=== PATIENT | female | born 1970 | race Caucasian/White ===

== ENCOUNTER 2017-01-10 12:40 | Emergency (ER) | payer BC ==
[~2017-01-10] VITALS: Ht 172.7 cm; Wt 68.2 kg
[2017-01-10 12:40] VITALS: TEMP 98.6; Ht 172.7 cm; Wt 68.2 kg
[~2017-01-10 12:40] MED LIST: OXYC1TAB8 PO; VENL-68 PO
--- OUTSIDE RECORDS SUMMARY | 2017-01-10 12:44 | XMS REPORT | Referral Summary ---
Author Author [facility] Organization [facility] Address Unknown Phone Unavailable Care Team Providers Care Biomaterials Engineer Name Role Phone No PCP, [facility] Primary Care Physician [phone] Encounter [facility] Date(s): 06/23/16 - 06/23/16 [facility] [address] [place], [place] [address] Discharge Disposition: 01-Home or Self Care Attending Physician: Davi Aguilera MD Admitting Physician: Davi Aguilera MD Vital Signs No data available for this section Problem List Condition Effective Dates Status Health Status Informant Cancer of the right Active eye.(Confirmed) Migraine(Confirmed) Active Allergies, Adverse Reactions, Alerts Substance Reaction Severity Status acetaminophen ADDICTION Active HYDROcodone ADDICTION Active Medications busPIRone 10 mg oral tablet 10 mg 1 tabs, Oral, TID, # 90 tabs, 0 Refill(s), Pharmacy: [facility], 1 tabs Oral TID Start Date: 03/16/16 Status: Ordered Effexor XR 75 mg oral capsule, extended release 75 mg 1 caps, Oral, Daily, # 90 caps, 0 Refill(s), Pharmacy: [facility], 1 caps Oral Daily Start Date: 04/06/16 Status: Ordered Imitrex 25 mg oral tablet 25 mg 1 tabs, Oral, Daily, as needed for migraine headache, may repeat dose after 2 hours up to a maximum of 200 mg in 24 hours, # 9 tabs, 0 Refill(s), Pharmacy: [facility], 1 tabs Oral Daily,PRN:as needed for migraine headache,Instr:may r... Start Date: 01/14/16 Status: Ordered Percocet 5/325 oral tablet 1-2 tabs, Oral, q6hr, as needed for pain, # 60 tabs, 0 Refill(s) Start Date: 06/08/16 Stop Date: 07/03/16 Status: Ordered Percocet 5/325 oral tablet 1 to 2tabs, Oral, q6hr, as needed for pain, # 60 tabs, 0 Refill(s) Start Date: 06/23/16 Stop Date: 07/07/16 Status: Ordered Tylenol Extra Strength 500 mg, Oral, q6hr, 0 Refill(s) Start Date: 05/25/16 Status: Ordered Results No data available for this section Immunizations Vaccine Date Refusal Reason influenza virus vaccine, inactivated1 06/11/15 1Location History: [facility] Procedures Procedure Date Related Diagnosis Body Site Mutiple eye surgeries Rt Arthroscopy of knee Social History Social History Type Response Smoking Status Current every day smoker; Type: Cigarettes Assessment and Plan No data available for this section
--- OUTSIDE RECORDS SUMMARY | 2017-01-10 12:44 | XMS REPORT | Referral Summary ---
Author Author [facility] Organization [facility] Address Unknown Phone Unavailable Care Team Providers Care Core Rescuer Name Role Phone No PCP, [facility] Primary Care Physician [phone] Encounter [facility] [id number] Date(s): 07/09/16 - 07/09/16 [facility], [facility] [address] [place] [address] Discharge Diagnosis: Chronic lower back pain Discharge Diagnosis: Pelvic region somatic dysfunction Discharge Diagnosis: Thoracic region somatic dysfunction Discharge Diagnosis: Lumbar region somatic dysfunction Discharge Disposition: 01-Home or Self Care Attending Physician: Marek Townsend DO Admitting Physician: Marek Townsend DO Vital Signs Most recent to 1 oldest [Reference Range]: Peripheral Pulse 79 bpm Rate [60-100 bpm] (07/09/16 4:16 PM) Respiratory Rate 18 br/min [14-20 br/min] (07/09/16 4:16 PM) Blood Pressure 110/80 mmHg [90-140/60-90 mmHg] (07/09/16 4:16 PM) SpO2 98 % (07/09/16 4:16 PM) Problem List Condition Effective Dates Status Health Status Informant Cancer of the right Active eye.(Confirmed) Clavicle Active fracture(Confirmed) Migraine(Confirmed) Active Allergies, Adverse Reactions, Alerts Substance Reaction Severity Status acetaminophen ADDICTION Active HYDROcodone ADDICTION Active Medications busPIRone 10 mg oral tablet 10 mg 1 tabs, Oral, TID, # 90 tabs, 0 Refill(s), Pharmacy: [id number], 1 tabs Oral TID Start Date: 03/16/16 Status: Ordered Effexor XR 75 mg oral capsule, extended release 75 mg 1 caps, Oral, Daily, # 90 caps, 0 Refill(s), Pharmacy: [facility], 1 caps Oral Daily Start Date: 04/06/16 Status: Ordered Imitrex 25 mg oral tablet 25 mg 1 tabs, Oral, Daily, as needed for migraine headache, may repeat dose after 2 hours up to a maximum of 200 mg in 24 hours, # 9 tabs, 0 Refill(s), Pharmacy: [facility], 1 tabs Oral Daily,PRN:as needed for migraine headache,Instr:may r... Start Date: 01/14/16 Status: Ordered Tylenol Extra Strength 500 mg, [...] day smoker; Type: Cigarettes Assessment and Plan Extracted from: Title: OV - Lower Back Pain Author: Marek Townsend DO Date: 07/09/16 Assessment/Plan 1.Chronic lower back pain Offered OMT to patientfor chronic lower back pain. Patient has no contraindication for OMT. Patientverbally consented for OMT. OMT performed very carefully as to not disturb healing of her L clavicle. Pt was not in any position or received any treatment that caused pain to her L clavicle. Patient tolerated the procedure well with significant improvement of pain per patient. Recommend drinking plenty of water and may use Tylenol, ibuprofen,and heating padas needed for pain. Returnas needed. Discussed aboutworrisome signs such asloss of bowel or bladder control in saddle numbness. Patient to return to care soonerif these occur. OMT performed: Thoracic- Myofascial release Lumbar - Myofascial release Pelvis - Articulatory technique, muscle energy 2.Thoracic region somatic dysfunction OMT performedwith improvement as stated above 3.Lumbar region somatic dysfunction OMT performedwith improvement as stated above 4.Pelvic region somatic dysfunction OMT performedwith improvement as stated above
--- OUTSIDE RECORDS SUMMARY | 2017-01-10 12:44 | XMS REPORT | Referral Summary ---
Author Author [facility] Organization [facility] Address Unknown Phone Unavailable Care Team Providers Care Bonding Supervisor Name Role Phone No PCP, [facility] Primary Care Physician [phone] Encounter [facility] Date(s): 09/15/16 - 09/15/16 [facility], [address] [place] [id number] Discharge Disposition: 01-Home or Self Care Attending Physician: Giselle Cortes APRN Admitting Physician: Giselle Cortes APRN Vital Signs Most recent to 1 oldest [Reference Range]: Temperature Tympanic 36.7 degC [36.6-38.1 degC] (09/15/16 9:55 AM) Peripheral Pulse 88 bpm Rate [60-100 bpm] (09/15/16 9:55 AM) Respiratory Rate 17 br/min [14-20 br/min] (09/15/16 9:55 AM) Blood Pressure 110/70 mmHg [90-140/60-90 mmHg] (09/15/16 9:55 AM) SpO2 98 % (09/15/16 9:55 AM) Problem List Condition Effective Dates Status Health Status Informant Cancer of the right Active eye.(Confirmed) Clavicle Active fracture(Confirmed) Migraine(Confirmed) Active Allergies, Adverse Reactions, Alerts Substance Reaction Severity Status acetaminophen ADDICTION Active HYDROcodone ADDICTION Active Medications Augmentin 875 mg-125 mg oral tablet 1 tabs, Oral, q12hr, X 10 days, # 20 tabs, 0 Refill(s), Pharmacy: [facility] Start Date: 09/15/16 Stop Date: 09/25/16 Status: Ordered busPIRone 10 mg oral tablet 10 mg 1 tabs, Oral, TID, # 90 tabs, 0 Refill(s), Pharmacy: [facility], 1 tabs Oral TID Start Date: 03/16/16 Status: Ordered Codeine Phosphate-Promethazine HCl 10 mg-6.25 mg/5 mL oral syrup 5 mL, Oral, q4hr, as needed for cough, not to exceed 30 mL/24 hours, # 240 mL, 0 Refill(s) Start Date: 09/15/16 Status: Ordered Effexor XR 75 mg oral capsule, extended release 75 mg 1 caps, Oral, Daily, # 90 caps, 0 Refill(s), Pharmacy: [facility], 1 caps Oral Daily Start Date: 08/10/16 Status: Ordered Imitrex 25 mg oral tablet 25 mg 1 tabs, Oral, Daily, as needed for migraine headache, may repeat dose after 2 hours up to a maximum of 200 mg in 24 hours, # 9 tabs, 0 Refill(s), Pharmacy: [facility], 1 tabs Oral Daily,PRN:as needed for migraine headache,Instr:january r... Start Date: 01/14/16 Status: Ordered Lyrica 75 mg oral capsule 75 mg 1 caps, Oral, BID, # 60 caps, 2 Refill(s) Start Date: 08/06/16 Status: Ordered Tylenol Extra Strength 500 mg, Oral, q6hr, 0 Refill(s) Start Date: 05/25/16 Status: Ordered Results Hematology Most recent to 1 oldest [Reference Range]: WBC [5.0-10.0 10.0 10*3/uL 10*3/uL] (09/15/16 10:58 AM) RBC [3.70-5.20] 4.53 (09/15/16 10:58 AM) Hgb [12.0-16.0 14.1 gm/dL gm/dL] (09/15/16 10:58 AM) Hct [37.0-47.0 %] 42.1 % (09/15/16 10:58 AM) MCV [80.0-96.0 fL] 92.9 fL (09/15/16 10:58 AM) MCH [26.0-34.0 pg] 31.1 pg (09/15/16 10:58 AM) MCHC [32.0-36.0 33.5 gm/dL gm/dL] (09/15/16 10:58 AM) RDW [0.0-14.5 %] 12.0 % (09/15/16 10:58 AM) Platelet [150-400 202 10*3/uL 10*3/uL] (09/15/16 10:58 AM) MPV [8.8-14.8 fL] 11.8 fL (09/15/16 10:58 AM) Neutrophils [50-70 74 % %] *HI* (09/15/16 10:58 AM) Lymphocytes [20-40 17 % %] *LOW* (09/15/16 10:58 AM) Monocytes [4-8 %] 8 % (09/15/16 10:58 AM) Eosinophils [0-6 %] 2 % (09/15/16 10:58 AM) Basophils [0-2 %] 0 % (09/15/16 10:58 AM) Neutro Absolute 7.39 [2.50-7.00] *HI* (09/15/16 10:58 AM) Lymph Absolute 1.69 [1.00-4.00] (09/15/16 10:58 AM) [place] Absolute 0.75 [0.20-0.80] (09/15/16 10:58 AM) Eos Absolute 0.20 [0.00-0.60] (09/15/16 10:58 AM) Baso Absolute 0.02 [0.00-0.30] (09/15/16 10:58 AM) Immunizations Given and Recorded Vaccine Date Status Refusal Reason influenza virus vaccine, inactivated1 06/11/15 Recorded 1Location History: [facility] Procedures Procedure Date Related Diagnosis Body Site Collection of venous blood by venipuncture 09/15/16 Mutiple eye surgeries Rt Arthroscopy of knee Social History Social History Type Response Smoking Status Current every day smoker; Type: Cigarettes Assessment and Plan No data available for this section
--- OUTSIDE RECORDS SUMMARY | 2017-01-10 12:44 | XMS REPORT | Referral Summary ---
Author Author [facility] Organization [facility] Address Unknown Phone Unavailable Care Team Providers Care Property Custodian Name Role Phone No PCP, [facility] Primary Care Physician [phone] Encounter VC Date(s): 06/08/16 - 06/08/16 [facility] [address] [place], [place] [address] Discharge Disposition: 01-Home or Self Care Attending [...] TID, # 90 tabs, 0 Refill(s), Pharmacy: [facility], 1 tabs Oral TID Start [...] hours, # 9 tabs, 0 Refill(s), Pharmacy: [facility], 1 tabs Oral Daily,PRN:as needed for migraine headache,Instr:may r... Start Date: 01/14/16 Status: Ordered oxyCODONE-acetaminophen 5 mg-325 mg oral tablet See Instructions, as needed for pain, 1 -2 tabs Oral q4-6hr, # 60 tabs, 0 Refill (s) Start Date: 05/25/16 Stop Date: 06/12/16 Status: Ordered Percocet 5/325 oral tablet 1-2 tabs, Oral, q6hr, as needed for pain, # 60 tabs, 0 Refill(s) Start Date: 06/08/16 Stop Date: 07/03/16 Status: Ordered Tylenol Extra Strength 500 mg, [...] Cigarettes Assessment and Plan Extracted from: Title: Ambulatory Patient Education Author: Davi Aguilera MD Date: 06/08/16 Physical Medicine and Rehabilitation Rib Belt Rib belts can be used to help control the pain from a chest injury. The belt gives gentle support to the injured area. It also helps reduce chest motion. RISKS AND COMPLICATIONS Rib belts can increase the risk of getting pneumonia after a chest injury. You must be sure to breathe deeply and cough several times every hour to keep your lungs clear. Do not use a rib belt if it does not help relieve your pain. HOW TO APPLY THE RIB BELT Wear the rib belt only as directed by your health care provider. Take the belt off at night when you go to bed. 1.Place the belt across your back and stretch the ends out and forward across your rib cage. 2.Press the velcro areas together when the belt is putting gentle pressure on your chest wall. Do not make the rib belt too tight. Make sure you can breathe comfortably. SEEK MEDICAL CARE IF: You have a fever. SEEK IMMEDIATE MEDICAL CARE IF: You develop pus-like sputum or an uncontrolled cough. You begin coughing up blood. You have pain that is getting worse or is not controlled with medicines. MAKE SURE YOU: Understand these instructions. Will watch your condition. Will get help right away if you are not doing well or get worse. This information is not intended to replace advice given to you by your health care provider. Make sure you discuss any questions you have with your health care provider. Document Released: 09/30/2005 Document Revised: 09/13/2015 Document Reviewed: [employer] Patient Information 2016 [employer] [facility]. No follow up information was provided. Extracted from: Title: Office Visit Note Author: Davi Aguilera MD Date: 06/08/16 Assessment/Plan Orthopedic aftercare Ordered: Postoperative Est [id number] Extracted from: Title: Clinical Document Author: Kusum Hooker RN Date: 06/08/16 [facility] Dr. Davi Aguilera MD [address] [place] [address] Fx: [phone] To whom it may concern: Sarah Robles is currently under my medical care and was seen in the office on 06/08/16 for left clavicle fracture. Recommend no lifting/non-weightbearing left upper extremity. She will follow up in approximately 2 weeks for re-evaluation. Sincerely, Dr. Davi Aguilera MD
--- OUTSIDE RECORDS SUMMARY | 2017-01-10 12:44 | XMS REPORT | Referral Summary ---
Author Author [facility] Organization [facility] Address Unknown Phone Unavailable Care Team Providers Care Teletype Technician Name Role Phone No PCP, [facility] Primary Care Physician [phone] Encounter VC Date(s): 08/10/16 - 08/10/16 [facility] [address] [place] [address] Discharge Disposition: 01-Home or Self Care [...] TID, # 90 tabs, 0 Refill(s), Pharmacy: [facility], 1 tabs Oral TID Start Date: 03/16/16 Status: Ordered Effexor XR 75 mg oral capsule, extended release 75 mg 1 caps, Oral, Daily, # 90 caps, 0 Refill(s), Pharmacy: [facility], 1 caps Oral Daily Start Date: 08/10/16 Status: Ordered Imitrex 25 mg oral tablet 25 mg 1 tabs, Oral, Daily, as needed for migraine headache, may repeat dose after 2 hours up to a maximum of 200 mg in 24 hours, # 9 tabs, 0 Refill(s), Pharmacy: [facility], 1 tabs Oral Daily,PRN:as needed for migraine headache,Instr:may r... Start Date: 01/14/16 Status: Ordered Lyrica [...] Patient Education Author: Davi Aguilera MD Date: 08/10/16 Physical Medicine and Rehabilitation Rib Belt Rib [...] Released: 09/30/2005 Document Revised: 09/13/2015 Document Reviewed: [employer] Patient Education 2016 [employer] No follow up information was provided. Extracted from: Title: Office Visit Note Author: Davi Aguilera MD Date: 08/10/16 Assessment/Plan Orthopedic aftercare Ordered: Postoperative Est [id number]
--- OUTSIDE RECORDS SUMMARY | 2017-01-10 12:44 | XMS REPORT | Referral Summary ---
Author Author [facility] Organization [facility] Address Unknown Phone Unavailable Care Team Providers Care Hand Developer Name Role Phone No PCP, [facility] Primary Care Physician [phone] Encounter VC Date(s): 05/25/16 - 05/25/16 [facility] [address] [place], [place] [address] Discharge Disposition: 01-Home or Self Care [...] TID, # 90 tabs, 0 Refill(s), Pharmacy: [facility], 1 tabs Oral TID Start Date: 03/16/16 Status: Ordered Effexor XR 75 mg oral capsule, extended release 75 mg 1 caps, Oral, Daily, # 90 caps, 0 Refill(s), Pharmacy: [facility], 1 caps Oral Daily Start Date: 04/06/16 Status: Ordered Imitrex 25 mg oral tablet 25 mg 1 tabs, Oral, Daily, as needed for migraine headache, may repeat dose after 2 hours up to a maximum of 200 mg in 24 hours, # 9 tabs, 0 Refill(s), Pharmacy: [facility], 1 tabs Oral Daily,PRN:as needed for migraine headache,Instr:may r... Start Date: 01/14/16 Status: Ordered oxyCODONE-acetaminophen 5 mg-325 mg oral tablet See Instructions, as needed for pain, 1 -2 tabs Oral q4-6hr, # 60 tabs, 0 Refill (s) Start Date: 05/25/16 Stop Date: 06/12/16 Status: Ordered Tylenol Extra Strength 500 mg, [...] Cigarettes Assessment and Plan Extracted from: Title: Clinical Document Author: Janie Doe Date: 05/25/16 [facility] Dr. Davi Aguilera MD [address] [facility] [address] FX: [phone] To whom it may concern: Sarah Robles is currently under my medical care and was seen in the office on for a left clavicle fracture. May return to work 05/27/16 with the following restrictions. No weight bearing or lifting with the left upper extremity, sling to left upper extremity. Sincerely, Dr. Davi Aguilera MD
--- OUTSIDE RECORDS SUMMARY | 2017-01-10 12:44 | XMS REPORT | Continuity of Care Document ---
Author Author [facility] Organization [facility] Address Unknown Phone Unavailable Support Name Relationship Address Phone MARIETTA MACHUCA MD Caregiver [address] [place] [address] Unavailable ADRIANA CHAIDEZ Next Of Kin [address] [place] [address] Insurance Providers Guarantor Sarah Robles Address [address] [place] [address] C Email DENIED TO PT PORTAL Payer [facility] [email or web address] Policy Number [id number] Subscriber's Name Juan Daniel Roblesyn Earnestine Relationship 18 Self Group Number [id number] Chief Complaint and Reason for Visit Chief Complaint Shoulder Injury Reason for Visit Fracture, clavicle Problems Past Problems Medical Problem Onset Date Fracture, clavicle Unknown Medications Current Home Medications Medication Dose Units Route Directions Days Qty Instructions Start Date Oxycodone Hcl/Acetaminophen (Percocet 5-325 Mg Tablet) 5-325 Tablet 1-2 Tab Oral Every 6 Hr Prn as needed for Pain 20 Tablet Take 1 tablet, by mouth, every 4 hours as needed for pain. 05/16/16 Venlafaxine Hcl (Venlafaxine Hcl Er) 75 Mg Cap.er.24h 75 Mg Oral Daily 05/16/16 Past Home Medications Medication Directions Ordered Status Albuterol (Ventolin) 17 Gm Aerosol, 2 Puff Inhalation As Needed 09/17/10 Discontinued Albuterol Sulfate (Ventolin Hfa) 18 Gm Hfa.aer.ad, 18 Gm Inhalation Discontinued Citalopram Hydrobromide (Celexa) 40 Mg Tablet, 40 Mg Oral Daily 09/17/10 Discontinued Venlafaxine Hcl (Effexor Xr) 150 Mg Cap.sr.24h, 1 Tab Oral Daily 10/29/08 Discontinued Social History Social History Problem Response Recorded Date/Time Onset Date Status Chewing Tobacco Status No 05/16/2016 8:51pm Not Applicable Not Applicable Hx Substance Use Y PRECRIPTION MED 05/16/2016 8:51pm Not Applicable Not Applicable Hx Alcohol Use Y OCC 05/16/2016 8:51pm Not Applicable Not Applicable Query Response Start Date Stop Date Smoking Status Current every day smoker Hospital Discharge Instructions No hospital discharge instructions. Plan of Care Discharge Date 05/16/16 10:10pm Disposition 01 DISCHARGED HOME, SELF-CARE Condition at Discharge Improved Instructions/Education Provided Clavicle Fracture Forms Provided Return to Work/School Permit Prescriptions See Medication Section Referrals DILAN SALDIVAR MD Address: [address] [place] [address] [place] [address] Additional Instructions/Education Wear shoulder immobilizer as directed. May take 800 mg of ibuprofen with food every 8 hours or Aleve OTC twice daily with food. May take Percocet 5/325 one to 2 tablets every 6 hours as needed for pain. May ice area every 15 minutes for next 48 hours. Follow with orthopedic provider of your choice in next 7-10 days. Follow treatment plan. Care Plan and Goals Physician Care Plan Problem: Clavicle fracture Goal: Follow up with primary care provider Instructions: Take medications and follow care plan as discussed/written Functional Status No functional status results. Allergies, Adverse Reactions, Alerts Allergen Type Severity Reaction Status Last Updated Hydrocodone Allergy Intermediate RASH/ITCHING Active 05/16/16 Immunizations Query Response on File Recorded Date/Time Hx Influenza Vaccination No 09/18/10 8:00am Hx Pneumococcal Vaccination No 09/18/10 8:00am Hx Influenza Vaccination No 09/18/10 8:00am Hx Tetanus Diptheria Y GREATER THAN 5 YRS 01/23/12 12:45pm Tdap Vaccine Hx PT UNSURE OF 05/16/16 10:18pm Vital Signs Acute Vital Signs Vital Response Date/Time Temperature (Fahrenheit) 98.4 deg F (96.8 - 99.1) 05/16/2016 8:46pm Temperature (Calculated Celsius) 36.85211 degrees C (36.0 - 37.3) 05/16/2016 8:46pm Pulse Rate (adult) 95 bpm (60 - 100) 05/16/2016 8:46pm Respiratory Rate 15 breaths/min (10 - 20) 05/16/2016 9:32pm O2 Sat by Pulse Oximetry 97 % (90 - 100) 05/16/2016 8:46pm Blood Pressure 121/84 mm Hg 05/16/2016 8:46pm Height (Feet) 6 feet 05/16/2016 8:46pm Height (Inches) 0 inches 05/16/2016 8:46pm Weight (Kilograms) 66.000 kg 05/16/2016 8:46pm Body Mass Index (BMI) 19.0 05/16/2016 8:46pm Results No known relevant diagnostic tests, laboratory data and/or discharge summary. Procedures No known history of procedures. Encounters Encounter Location Arrival/Admit Date Discharge/Depart Date Attending Provider Departed Emergency Room [facility] 05/16/16 8:27pm 05/16/16 10: 10pm MARIETTA MACHUCA MD Recent Diagnosis
--- OUTSIDE RECORDS SUMMARY | 2017-01-10 12:44 | XMS REPORT | Referral Summary ---
Author Author [facility] Organization [facility] Address Unknown Phone Unavailable Care Team Providers Care Plate Slitter And Inspector Name Role Phone No PCP, [facility] Primary Care Physician [phone] Encounter VC Date(s): 07/06/16 - 07/06/16 [facility] [address] [place], [place] [address] Discharge Disposition: 01-Home or Self Care Attending [...] TID, # 90 tabs, 0 Refill(s), Pharmacy: [id number], 1 tabs Oral TID Start [...] hours, # 9 tabs, 0 Refill(s), Pharmacy: [id number], 1 tabs Oral Daily,PRN:as needed [...] Patient Education Author: Davi Aguilera MD Date: 07/06/16 Procedures Shoulder Range of Motion Exercises Shoulder range of motion (ROM) exercises are designed to keep the shoulder moving freely. They are often recommended for people who have shoulder pain. MOVEMENT EXERCISE When you are able, do this exercise 56 days per week, or as told by your health care provider. Work toward doing 2 sets of 10 swings. Pendulum Exercise How To Do This Exercise Lying Down 1.Lie face-down on a bed with your abdomen close to the side of the bed. 2.Let your arm hang over the side of the bed. 3.Relax your shoulder, arm, and hand. 4.Slowly and gently swing your arm forward and back. Do not use your neck muscles to swing your arm. They should be relaxed. If you are struggling to swing your arm, have someone gently swing it for you. When you do this exercise for the first time, swing your arm at a 15 degree angle for 15 seconds, or swing your arm 10 times. As pain lessens over time, increase the angle of the swing to 3045 degrees. 5.Repeat steps 14 with the other arm. How To Do This Exercise While Standing 1.Stand next to a sturdy chair or table and hold on to it with your hand. Bend forward at the waist. Bend your knees slightly. Relax your other arm and let it hang limp. Relax the shoulder blade of the arm that is hanging and let it drop. While keeping your shoulder relaxed, use body motion to swing your arm in small circles. The first time you do this exercise, swing your arm for about 30 seconds or 10 times. When you do it next time, swing your arm for a little longer. Stand up tall and relax. Repeat steps 17, this time changing the direction of the circles. 9.Repeat steps 18 with the other arm. STRETCHING EXERCISES Do these exercises 34 times per day on 56 days per week or as told by your health care provider. Work toward holding the stretch for 20 seconds. Stretching Exercise 1 1.Lift your arm straight out in front of you. 2.Bend your arm 90 degrees at the elbow (right angle) so your forearm goes across your body and looks like the letter "L." 3.Use your other arm to gently pull the elbow forward and across your body. 4.Repeat steps 13 with the other arm. Stretching Exercise 2 You will need a towel or rope for this exercise. 1.Bend one arm behind your back with the palm facing outward. 2.Hold a towel with your other hand. 3.Reach the arm that holds the towel above your head, and bend that arm at the elbow. Your wrist should be behind your neck. 4.Use your free hand to grab the free end of the towel. 5.With the higher hand, gently pull the towel up behind you. 6.With the lower hand, pull the towel down behind you. 7.Repeat steps 16 with the other arm. STRENGTHENING EXERCISES Do each of these exercises at four different times of day (sessions) every day or as told by your health care provider. To begin with, repeat each exercise 5 times (repetitions). Work toward doing 3 sets of 12 repetitions or as told by your health care provider. Strengthening Exercise 1 You will need a light weight for this activity. As you grow stronger, you may use a heavier weight. 1.Standing with a weight in your hand, lift your arm straight out to the side until it is at the same height as your shoulder. 2.Bend your arm at 90 degrees so that your fingers are pointing to the ceiling. 3.Slowly raise your hand until your arm is straight up in the air. 4.Repeat steps 13 with the other arm. Strengthening Exercise 2 You will need a light weight for this activity. As you grow stronger, you may use a heavier weight. 1.Standing with a weight in your hand, gradually move your straight arm in an arc, starting at your side, then out in front of you, then straight up over your head. 2.Gradually move your other arm in an arc, starting at your side, then out in front of you, then straight up over your head. 3.Repeat steps 12 with the other arm. Strengthening Exercise 3 You will need an elastic band for this activity. As you grow stronger, gradually increase the size of the bands or increase the number of bands that you use at one time. 1.While standing, hold an elastic band in one hand and raise that arm up in the air. 2.With your other hand, pull down the band until that hand is by your side. 3.Repeat steps 12 with the other arm. This information is not intended to replace advice given to you by your health care provider. Make sure you discuss any questions you have with your health care provider. Document Released: 05/21/2004 Document Revised: 01/07/2016 Document Reviewed: Elsevier Interactive Patient Education 2016 [employer] No follow up information was provided. Extracted from: Title: Office Visit Note Author: Davi Aguilera MD Date: 07/06/16 Assessment/Plan Orthopedic aftercare Ordered: Office Visit Level 3 Est 33812
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
[2017-01-10] MEDS ORDERED: HYDROMORPHONE 2mg/ml INJECTION IM ONE (13:15)
[2017-01-10] MEDS ORDERED: KETOROLAC 60mg/2ml INJECTION IM ONE (13:15)
--- NOTE | 2017-01-10 13:22 | NUR ---
MEDS TORADOL AND DILAUDID GIVEN IM FOR PAIN.
[2017-01-10] MEDS ORDERED: BUSP30TA2 (13:25)
--- NOTE | 2017-01-10 13:26 | NUR ---
XRAY PT. TO XRAY PER CART.
--- NOTE | 2017-01-10 13:42 | NUR ---
XRAY PT. RETURNED FROM XRAY.
--- NOTE | 2017-01-10 14:10 | NUR ---
STATUS STATES SHE IS FEELING BETTER.
[2017-01-10] MEDS ORDERED: BUSP10TA3 PO (14:23)
[2017-01-10] MEDS ORDERED: IBUP-1724 PO (14:23)
[2017-01-10] MEDS ORDERED: VENL-69 PO (14:23)
[2017-01-10] MEDS ORDERED: OXYC1TAB8 PO (14:26)
--- NOTE | 2017-01-10 14:35 | NUR ---
DISMISSAL NOTE PT. RATES HER PAIN A 4 NOW AND IS MOVING EASIER. DISMISSAL INSTRUCTIONS GIVEN AND NO FURTHER QUESTIONS. PT. LEFT ED AMBULATORY WITH MALE.
[2017-01-10 16:23] VITALS: BP 99/60; PULSE 88; RESP 18; O2SAT 97
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
--- NOTE | 2017-01-10 17:38 | DI ---
Indication: ITS.REASON: TTP over ribs 3-10 on left lateral side PROCEDURE: RIBS LEFT WITH AP CHEST: Encounter: Initial Comparison: Left shoulder radiographs dated May 16, 2016 FINDINGS: Chest: The lungs are clear. There is no abnormal airspace opacity, pleural effusion or pneumothorax identified. The heart size and mediastinum are within normal limits. Old healed left clavicular fracture. AP and oblique views of the left ribs: No displaced rib fracture is seen. IMPRESSION: No acute cardiopulmonary abnormality. .
== END 2017-01-10 14:35 | disposition home or self-care (01) ==
LOC: ED 12:40
DX: R07.81 Pleurodynia (principal); M25.552 Pain in left hip; V28.0XXA Motorcycle driver injured in noncollision transport accident in nontraffic accident, initial encounter; Y93.89 Activity, other specified; Y92.89 Other specified places as the place of occurrence of the external cause; Y99.8 Other external cause status
CPT/HCPCS: 71101; 73502; 96372; 99283; J1170; J1885